=== PATIENT | female | born 1970 | race Caucasian/White ===

== ENCOUNTER 2017-03-27 13:59 | Emergency (ER) | payer MEDICAID ==
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
--- NOTE | 2017-03-27 16:32 | CR ---
Right shoulder: Three views of the right shoulder were obtained. Comparison: No prior study. Glenohumeral joint and acromioclavicular joint appear within normal limits. No fracture or other abnormality is identified. Impression: 1. No abnormality is identified on three-view right shoulder study. Diagnostic code #1
--- NOTE | 2017-03-27 16:32 | CR ---
Right clavicle: Two views of the right clavicle were obtained. Comparison: No prior study. No fracture or other abnormality is appreciated. Impression: 1. No abnormality is seen on two-view right clavicle study. Diagnostic code #1
== END 2017-03-27 16:00 | disposition home or self-care (01) ==
LOC: JD.ED 13:59
DX: M75.101 Unspecified rotator cuff tear or rupture of right shoulder, not specified as traumatic (principal); F17.210 Nicotine dependence, cigarettes, uncomplicated
CPT/HCPCS: 73000-26-RT; 73000-RT; 73030-26-RT; 73030-RT; 99283

== ENCOUNTER 2019-03-24 17:34 | Emergency (ER) | payer MEDICAID ==
[2019-03-24] MEDS ORDERED: Apixaban 5 MG Tab PO ONE (19:01)
--- NOTE | 2019-03-24 19:09 | EDM.PDOC ---
ED HPI GENERAL MEDICAL PROBLEM - General Chief Complaint: Lower Extremity Injury/Pain Stated Complaint: SENT BY DR Escobedo Seen by Provider: 03/24/19 17:55 Source of Information: Reports: Patient History Limitations: Reports: No Limitations - History of Present Illness INITIAL COMMENTS - FREE TEXT/NARRATIVE: Patient is a 48-year-old female who was sent over from [facility] for a DVT in her left lower extremity. I did speak with Dr. Escobar at [facility]. She did complete a d-dimer which she states was elevated. An ultrasound was completed in our radiology department here and did show a DVT in her left lower extremity. Dr. Escobar was unable to get her a dose of Eliquis tonight as all pharmacies were closed, so she was sent here to be started on Eliquis tonight. Patient states that she has been having left lower extremity swelling, redness and pain for the last 5 days with symptoms worsening over the last 2 days. Never had blood clots before and denies any chronic health problems. She denies any chest pain or shortness of breath. - Related Data Allergies Allergy/AdvReac Type Severity Reaction Status Date / Time No Known Allergies Allergy Verified 03/24/19 17:51 Home Meds: Home Meds . [No Known Home Meds] 03/27/17 [History] Apixaban [Eliquis] 5 mg PO ASDIRECTED 30 Days #71 tablet 03/24/19 [Rx] Past Medical History - Past Health History Medical/Surgical History: Denies Medical/Surgical History - Past Surgical History GI Surgical History: Reports: Appendectomy Female Surgical History: Reports: Oophorectomy Musculoskeletal Surgical History: Reports: Arthroscopic Procedure Social & Family History - Family History Family Medical History: Noncontributory - Tobacco Use Smoking Status *Q: Current Every Day Smoker Years of Tobacco use: 30 Packs/Tins Daily: 0.5 - Caffeine Use Caffeine Use: Reports: Soda - Recreational Drug Use Recreational Drug Use: No Review of Systems - Review of Systems Review Of Systems: Comprehensive ROS is negative, except as noted in HPI. ED EXAM, GENERAL - Physical Exam Exam: See Below Exam Limited By: No Limitations General Appearance: Alert, WD/WN, No Apparent Distress Respiratory/Chest: No Respiratory Distress, Lungs Clear, Normal Breath Sounds, No Accessory Muscle Use, Chest Non-Tender Cardiovascular: Normal Peripheral Pulses, Regular Rate, Rhythm, No Gallop, No JVD, No Murmur, No Rub, Other (3+ pitting edema to the left ankle to about the level of mid calf. Area is red and warm to the touch.) Neurological: Alert, Oriented, CN II-XII Intact, Normal Cognition, Normal Gait, Normal Reflexes, No Motor/Sensory Deficits Psychiatric: Normal Affect, Normal Mood Skin Exam: Warm, Dry, Intact, Normal Color, No Rash Course - Vital Signs Last Recorded V/S: Last Vital Signs Temp 97.8 F 03/24/19 17:49 Pulse 68 03/24/19 17:49 Resp 15 03/24/19 17:49 BP 142/84 H 03/24/19 17:49 Pulse Ox 96 03/24/19 17:49 - Orders/Labs/Meds Meds: Medications Discontinued Medications Generic Name Dose Route Start Last Admin Trade Name Freq PRN Reason Stop Dose Admin Apixaban 10 mg 03/24/19 19:01 03/24/19 19:27 Eliquis PO 03/24/19 19:02 10 mg ONETIME ONE Administration - Re-Assessments/Exams Free Text/Narrative Re-Assessment/Exam: 03/24/19 19:05 The hematology and ultrasound on the left lower extremity were done in our lab and radiology department as ordered by Dr. Escobar at [facility]. Patient's d-dimer was 0.96. Venous Doppler of the left lower extremity showed a probable thrombosis within the posterior tibial vein as well as subcutaneous edema within the left calf. We will start the patient on Eliquis 10 mg twice daily for 7 days with her first dose given tonight. We will then have her decrease to 5 mg twice daily. I will order a 1 month supply for her. She states that she is going to call in the morning to get a follow-up appointment with a primary care provider. From there this provider can monitor and determine the duration of therapy needed. Instructions as noted Departure - Departure Time of Disposition: 19:06 Disposition: Home, Self-Care 01 Condition: Fair Clinical Impression: DVT (deep venous thrombosis) Qualifiers: DVT location: lower extremity Affected thrombotic vein of extremity: tibial Chronicity: acute Laterality: left Qualified Code(s): I82.442 - Acute embolism and thrombosis of left tibial vein - Discharge Information *PRESCRIPTION DRUG MONITORING PROGRAM REVIEWED*: No *COPY OF PRESCRIPTION DRUG MONITORING REPORT IN PATIENT ALVARO: No Prescriptions: Apixaban [Eliquis] 5 mg PO ASDIRECTED 30 Days #71 tablet Instructions: Deep Vein Thrombosis Referrals: PCP,None [Primary Care Provider] - Lissa Lew DO [Ordering Only Provider] - Forms: ED Department Discharge Additional Instructions: You were seen in the emergency department today after being diagnosed with a DVT by the [facility]. You have been placed on Eliquis 10 mg twice daily for 7 days, followed by 5 mg twice daily. You did receive your first dose of medication in the emergency department. The length of treatment for this medication varies depending on the response to treatment. A one-month supply of this medication has been sent electronically to [facility]. It is important that you call tomorrow to schedule an appointment with a primary care provider for ongoing monitoring of your DVT. They will also be able to provide you with further prescriptions as needed. You should develop any pain in your chest or shortness of breath, you should return to the emergency department immediately. Sepsis Event Note - Evaluation Sepsis Screening Result: No Definite Risk - Focused Exam Vital Signs: Vital Signs Temp Pulse Resp BP Pulse Ox 03/24/19 17:49 97.8 F 68 15 142/84 H 96 Date Exam was Performed: 03/24/19 Time Exam was Performed: 22:33
== END 2019-03-24 19:26 | disposition home or self-care (01) ==
LOC: JD.ED 17:34
DX: I82.442 Acute embolism and thrombosis of left tibial vein (principal); F17.210 Nicotine dependence, cigarettes, uncomplicated; Z79.01 Long term (current) use of anticoagulants
CPT/HCPCS: 99283; A9270; 99284

== ENCOUNTER 2019-04-17 21:55 | Emergency (ER) | payer MEDICAID ==
--- NOTE | 2019-04-17 22:08 | EDM.PDOC ---
ED HPI GENERAL MEDICAL PROBLEM - General Chief Complaint: Lower Extremity Injury/Pain Stated Complaint: left leg pain Time Seen by Provider: 04/17/19 22:08 - History of Present Illness INITIAL COMMENTS - FREE TEXT/NARRATIVE: 48-year-old female presents to the emergency room with worsening DVT symptoms. Patient has had increased swelling in her left lower leg over the last week or so. She was seen in the walk-in clinic today and they sent her over for lower leg Doppler. Patient is not having any breathing difficulties no shortness of breath chest or legs getting more tender and redder. Patient denies any other symptoms with sodium as we had with this patient does have some shoulder discomfort this comes and goes and she is got known shoulder problems in the right shoulder. 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 Neurological History: Reports: None Psychiatric History: Reports: None Endocrine/Metabolic History: Reports: None Hematologic History: Reports: None Immunologic History: Reports: None Oncologic (Cancer) History: Reports: None Dermatologic History: Reports: None - Infectious Disease History Infectious Disease History: Reports: None - Past Surgical History GI Surgical History: Reports: Appendectomy Female Surgical History: Reports: Oophorectomy Musculoskeletal Surgical History: Reports: Arthroscopic Procedure Social & Family History - Family History Family Medical History: Noncontributory - Tobacco Use Smoking Status *Q: Current Every Day Smoker Years of Tobacco use: 30 Packs/Tins Daily: 0.5 - Caffeine Use Caffeine Use: Reports: Soda - Recreational Drug Use Recreational Drug Use: No Review of Systems - Review of Systems Review Of Systems: See Below Constitutional: Reports: No Symptoms Respiratory: Reports: No Symptoms Cardiovascular: Reports: No Symptoms GI/Abdominal: Reports: No Symptoms Genitourinary: Reports: No Symptoms Musculoskeletal: Reports: Shoulder Pain (Is a somewhat chronic) Skin: Reports: Other (Increased redness left lower leg) Neurological: Reports: No Symptoms ED EXAM, GENERAL - Physical Exam Exam: See Below Exam Limited By: No Limitations General Appearance: Alert, No Apparent Distress Head: Atraumatic, Normocephalic Neck: Normal Inspection, Supple, Non-Tender, Full Range of Motion Respiratory/Chest: No Respiratory Distress, Lungs Clear, Normal Breath Sounds Cardiovascular: Regular Rate, Rhythm, No Edema, No Murmur GI/Abdominal: Normal Bowel Sounds, Soft, Non-Tender Back Exam: Normal Inspection. No: CVA Tenderness (L), CVA Tenderness (R) Extremities: Other (Right lower leg swelling and redness she tells me is getting worse.) Lymphatic: No Adenopathy Course - Vital Signs Last Recorded V/S: Last Vital Signs Temp 36.3 C 04/17/19 22:02 Pulse 82 04/17/19 22:02 Resp 16 04/17/19 22:02 BP 148/85 H 04/17/19 22:02 Pulse Ox 98 04/17/19 22:02 - Orders/Labs/Meds Orders: Active Orders 24 hr Category Date Time Status VL Duplex Lwr Ext Veins Ltd Lt [US] Stat Exams 04/17/19 22:20 Taken - Re-Assessments/Exams Free Text/Narrative Re-Assessment/Exam: 04/17/19 23:57 Doppler shows no worsening or extension of the DVT. I suspect the patient is spending more time being active and less time with her foot elevated. I encouraged the activity but she needs to keep her foot elevated as much as she can continue the Eliquis 5 mg twice daily Departure - Departure Time of Disposition: 23:58 Disposition: Home, Self-Care 01 Clinical Impression: Left leg swelling DVT (deep venous thrombosis) Qualifiers: DVT location: lower extremity Affected thrombotic vein of extremity: tibial Chronicity: acute Laterality: left Qualified Code(s): I82.442 - Acute embolism and thrombosis of left tibial vein - Discharge Information Referrals: PCP,None [Primary Care Provider] - Forms: ED Department Discharge Additional Instructions: Return to the emergency room with any questions problems or worsening symptoms. Follow-up with your regular provider in 1 week. Continue taking the Eliquis as directed. Quit smoking! Sepsis Event Note - Evaluation Sepsis Screening Result: No Definite Risk - Focused Exam Vital Signs: Vital Signs Temp Pulse Resp BP Pulse Ox 04/17/19 22:02 36.3 C 82 16 148/85 H 98 Date Exam was Performed: 04/17/19 Time Exam was Performed: 23:57 - My Orders Last 24 Hours: My Active Orders 04/17/19 22:20 VL Duplex Lwr Ext Veins Ltd Lt [US] Stat - Assessment/Plan Last 24 Hours: My Active Orders 04/17/19 22:20 VL Duplex Lwr Ext Veins Ltd Lt [US] Stat
--- NOTE | 2019-04-18 06:59 | US ---
Left lower extremity deep venous ultrasound: Duplex and color Doppler evaluation was obtained of the left common femoral, superficial femoral, proximal greater saphenous, popliteal, posterior tibial and peroneal veins. Right common femoral vein was also evaluated. Comparison: Previous left lower extremity deep venous ultrasound of 03/24/19. Findings: Thrombus was seen previously within the posterior tibial vein. This is felt to persist and now appears to extend throughout the posterior tibial vein. Peroneal vein is also not well seen and likely contains partially occluding thrombus which is an interval change. Other vein show normal phasic flow and compression. Impression: 1. Worsening venous thrombosis below the knee from prior study. Thrombus now occludes the posterior tibial vein with partial occluding thrombus seen within the peroneal vein. 2. No venous thrombosis is seen above the knee. Diagnostic code #5 This report was dictated in Mountain Standard Time I agree with preliminary report from [facility], finalized on 04/18/19, 12:25 AM Central Time
== END 2019-04-18 00:10 | disposition home or self-care (01) ==
LOC: JD.ED 21:55
DX: I82.442 Acute embolism and thrombosis of left tibial vein (principal); F17.210 Nicotine dependence, cigarettes, uncomplicated; Z79.01 Long term (current) use of anticoagulants
CPT/HCPCS: 93971-26-LT; 93971-LT; 99283; 99283-25